=== PATIENT | female | born 1960 | race Caucasian/White ===

== ENCOUNTER 2020-10-26 13:38 | Emergency (ER) | payer BC, SELFPAY ==
[2020-10-26] VITALS (7 sets, daily range): BP systolic 120–169; BP diastolic 54–80; PULSE 55–104; RESP 16–20; TEMP 37.1; O2SAT 93–97; BMI 36.3
--- NOTE | 2020-10-26 14:04 | [facility].EDGENADL ---
ED Disposition Clinical Impression: Post-operative pain Disposition: Home, Self-Care Condition on Discharge: Good Instructions: DI for Acute Pain -- Adult Additional Instructions: Optimize your usage of pain adjuncts including Tylenol to a total of 2000 mg/day and alternate with ibuprofen or naproxen. Use the Percocet for breakthrough pain with awareness that there is 325 mg of Tylenol in the Percocet. Return to the ED for any new or worsening symptoms including difficulty urination weakness in the leg or fever. Referrals: Carri Lu MD [Primary Care Provider] - - Critical Care Critical Care Time: No Attestation: On 10/26/20, the high probability of a clinically significant, sudden or life threatening deterioration of the following system(s) required my full and direct attention, intervention and personal management. The time I documented below is in addition to time spent performing reported procedures but includes the following listed in this critical care notation. Medical Decision Making - Medical Records Medical records reviewed: Yes: I reviewed the patient's medical records. - [facility] Inquiry Pt receiving controlled substance: No Vital Signs: 10/26/20 13:41 10/26/20 14:16 10/26/20 15:05 Temperature 98.8 F Temperature Source Oral Pulse Rate [Right Radial] 101 H 104 H 98 H Respiratory Rate 16 20 18 Blood Pressure [Right Arm] 169/74 H 126/54 L 121/59 L Blood Pressure Mean [Right Arm] 105 78 79 Blood Pressure Source [Right Arm] Automatic Cuff Automatic Cuff Automatic Cuff Blood Pressure Position [Right Arm] Sitting Sitting Sitting 02 Sat by Pulse Oximetry 93 L 94 L 94 L Oxygen Delivery Method Room Air 10/26/20 15:35 10/26/20 16:12 Temperature Temperature Source Pulse Rate [Right Radial] 55 L 89 Respiratory Rate 18 18 Blood Pressure [Right Arm] 138/80 120/63 Blood Pressure Mean [Right Arm] 99 82 Blood Pressure Source [Right Arm] Automatic Cuff Automatic Cuff Blood Pressure Position [Right Arm] Supine Sitting 02 Sat by Pulse Oximetry 93 L 97 Oxygen Delivery Method - Lab Data Lab Results 10/26/20 14:25: WBC 10.5, RBC 3.97 L, Hgb 12.1 L, Hct 38.1, MCV 95.9, MCH 30.6, MCHC 31.9, RDW 14.0, Plt Count 301, MPV 8.2, Neut % (Auto) 83.5 H, Lymph % (Auto) 9.7 L, [place] % (Auto) 5.1, Eos % (Auto) 1.3, Baso % (Auto) 0.3, Neut # (Auto) 8.8 H, Lymph # (Auto) 1.0, [place] # (Auto) 0.5, Eos # (Auto) 0.1, Baso # (Auto) 0.0 Result diagrams: 10/26/20 14:25 Orders (Tests/Meds): ED MEDICATIONS Generic Name Dose Route Start Last Admin Trade Name Freq PRN Reason Stop Dose Admin Methocarbamol 500 mg 10/26/20 21:00 10/26/20 14:34 Methocarbamol 500mg Tablet PO 11/25/20 20:59 500 mg BID KAMERON Administration Discontinued Medications Generic Name Dose Route Start Last Admin Trade Name Freq PRN Reason Stop Dose Admin Diazepam 5 mg 10/26/20 14:11 10/26/20 14:35 Diazepam 10mg/2ml Syringe IV 10/26/20 14:12 5 mg ONCE ONE Administration Hydromorphone HCl 0.5 mg 10/26/20 14:11 10/26/20 14:34 Hydromorphone 2mg/Ml Syringe IV 10/26/20 14:12 0.5 mg ONCE ONE Administration Medical Decision Narrative: 60-year-old female who presents 3 days postop from a spinal fusion with severe pain radiating down her left leg. She has no signs of compressive syndrome and no evidence of infection to the surgical site. Patient is having significant pain in distress. CBC is sent which demonstrates no elevation in white blood cell count. She will be given IV Dilaudid 0.5 mg and IV diazepam 5 mg. Following medication treatment the patient was reevaluated after a short observation period and she was feeling very well relaxed with no pain. She ambulated well and was discharged with instructions for ongoing pain management. General Adult HPI - General Chief complaint: PAIN Stated complaint: post op, back pain Time Seen by Provider: 10/26/20 14:04 Mode of Arrival: Wheelchair Limit
[2020-10-26 14:36] LABS: Basophils % 0.3 % (0.1-2.0); Eosinophils # 0.1 K/mm3 (0.0-0.4); Eosinophils % 1.3 % (0.1-12.0); Hematocrit 38.1 % (37.0-47.0); Hemoglobin 12.1 g/dL (12.2-16.2); Lymphocytes % 9.7 % (10-50); Mean Corpuscular HGB Conc 31.9 g/dL (31.8-35.4); Mean Corpuscular Hemoglobin 30.6 pg (27.0-31.2); Mean Corpuscular Volume 95.9 fl (81-99); Mean Platelet Volume 8.2 fl (7.4-10.4); Monocytes # 0.5 K/mm3 (0.1-1.0); Monocytes % 5.1 % (1.7-9.3); Neutrophils # 8.8 K/mm3 (1.8-7.8); Neutrophils % 83.5 % (37.0-80.0); Platelet Count 301 K/mm3 (142-424); Red Blood Count 3.97 M/mm3 (4.20-5.40); White Blood Count 10.5 K/mm3 (4.8-10.8)
== END 2020-10-26 16:43 | disposition home or self-care (01) ==
PROVIDERS: Emergency Provider Student in an Organized Health Care Education/Training Program; PCP Internal Medicine
DX: G89.18 Other acute postprocedural pain (principal); M54.5 Low back pain
CPT/HCPCS: 85025; 96374; 96375; 99283